=== PATIENT | female | born 1960 ===

== ENCOUNTER → 2019-07-12 07:09 | Outpatient (CLI) | payer OTHER ==
[~2019-07-12 07:09] MED LIST: COZAAR100 MG; COZAAR100 MG PO; GLUCOPHAGE XR500 MG; GLUCOPHAGE XR500 MG PO; GLUCOTROL10 MG; GLUCOTROL10 MG PO; LANTUS100 U/ML; LANTUS100 U/ML SUBCUTANEO; LASIX20 MG; LASIX20 MG PO; METFORMIN HCL1000 MG PO; SYNTHROID175 MCG; SYNTHROID175 MCG PO; ZOCOR20 MG; ZOCOR20 MG PO
== END | disposition home or self-care (01) ==
LOC: LAB 06:21
DX: E11.65 Type 2 diabetes mellitus with hyperglycemia (principal); E78.00 Pure hypercholesterolemia, unspecified; E03.8 Other specified hypothyroidism

== ENCOUNTER → 2020-01-08 | Outpatient (CLI) | payer OTHER | END | disposition home or self-care (01) | LOC: LAB 08:32 | DX: E11.65 Type 2 diabetes mellitus with hyperglycemia (principal); E78.00 Pure hypercholesterolemia, unspecified ==

== ENCOUNTER → 2020-04-29 | Outpatient (CLI) | payer OTHER | END | disposition home or self-care (01) | LOC: LAB 06:25 | PROVIDERS: ATTEND General Practice | DX: I10 Essential (primary) hypertension (principal); Z12.11 Encounter for screening for malignant neoplasm of colon; E11.65 Type 2 diabetes mellitus with hyperglycemia; E03.8 Other specified hypothyroidism; Z00.00 Encounter for general adult medical examination without abnormal findings ==

== ENCOUNTER 2020-06-16 14:14 | Outpatient (CLI) | payer OTHER | END 2020-06-16 14:17 | disposition home or self-care (01) | LOC: NUCLEAR 14:14 | PROVIDERS: ATTEND Internal Medicine Cardiovascular Disease | DX: M81.0 Age-related osteoporosis without current pathological fracture (principal); E55.9 Vitamin D deficiency, unspecified ==

== ENCOUNTER → 2020-07-24 | Outpatient (CLI) | payer OTHER | END | disposition home or self-care (01) | LOC: PPH VACUNA 09:00 | DX: Z23 Encounter for immunization (principal) ==

== ENCOUNTER 2021-06-19 06:07 | Outpatient (CLI) | payer OTHER | END 2021-06-19 15:00 | disposition home or self-care (01) | LOC: LAB 06:07 | PROVIDERS: ATTEND Internal Medicine Cardiovascular Disease | DX: I10 Essential (primary) hypertension (principal); E11.9 Type 2 diabetes mellitus without complications; E03.8 Other specified hypothyroidism; E78.2 Mixed hyperlipidemia ==

== ENCOUNTER 2021-11-11 09:20 | Outpatient (CLI) | payer OTHER | END 2021-11-11 14:39 | disposition home or self-care (01) | LOC: LAB 09:20 | DX: U07.1 COVID-19 (principal) ==

== ENCOUNTER → 2021-11-18 06:20 | Outpatient (CLI) | payer OTHER | END | disposition home or self-care (01) | LOC: LAB 06:20 | PROVIDERS: ATTEND Internal Medicine Cardiovascular Disease | DX: I10 Essential (primary) hypertension (principal); E11.9 Type 2 diabetes mellitus without complications; E03.8 Other specified hypothyroidism; E78.2 Mixed hyperlipidemia ==

== ENCOUNTER 2021-11-30 12:04 | Outpatient (CLI) | payer OTHER | END 2021-11-30 12:16 | disposition home or self-care (01) | LOC: MAMO-SONO 12:04 | PROVIDERS: ATTEND Internal Medicine Cardiovascular Disease | DX: N64.59 Other signs and symptoms in breast (principal); Z12.31 Encounter for screening mammogram for malignant neoplasm of breast ==

== ENCOUNTER → 2022-03-16 06:15 | Outpatient (CLI) | payer OTHER | END | disposition home or self-care (01) | LOC: LAB 06:15 | PROVIDERS: ATTEND Internal Medicine Cardiovascular Disease | DX: E03.9 Hypothyroidism, unspecified (principal); I10 Essential (primary) hypertension; E11.9 Type 2 diabetes mellitus without complications; E78.2 Mixed hyperlipidemia ==

== ENCOUNTER 2022-03-19 15:00 | Outpatient (CLI) | payer OTHER | END 2022-03-19 15:30 | disposition home or self-care (01) | LOC: PPH VACUNA 15:00 | PROVIDERS: ATTEND Emergency Medicine Pediatric Emergency Medicine | DX: Z23 Encounter for immunization (principal) ==

== ENCOUNTER 2022-06-08 11:33 | Emergency (ER) | payer OTHER ==
[~2022-06-08] VITALS: Ht 160 cm; Wt 108.9 kg
== END 2022-06-08 14:39 | disposition home or self-care (01) ==
LOC: ER 11:33
DX: R51.9 Headache, unspecified (principal); E11.65 Type 2 diabetes mellitus with hyperglycemia; Z79.4 Long term (current) use of insulin; E03.9 Hypothyroidism, unspecified

== ENCOUNTER 2022-06-29 00:38 | Emergency (ER) | payer OTHER | END 2022-06-29 03:15 | disposition home or self-care (01) | LOC: ER 00:38 | DX: E16.2 Hypoglycemia, unspecified (principal) ==

== ENCOUNTER → 2022-07-23 06:15 | Outpatient (CLI) | payer OTHER | END | disposition home or self-care (01) | LOC: LAB 06:15 | PROVIDERS: ATTEND Internal Medicine Cardiovascular Disease | DX: I10 Essential (primary) hypertension (principal); E11.9 Type 2 diabetes mellitus without complications; E03.9 Hypothyroidism, unspecified; E78.2 Mixed hyperlipidemia ==

== ENCOUNTER 2023-01-04 08:12 | Outpatient (CLI) | payer OTHER | END 2023-01-04 23:00 | disposition home or self-care (01) | LOC: LAB 08:12 | PROVIDERS: ATTEND Internal Medicine Cardiovascular Disease | DX: E03.9 Hypothyroidism, unspecified (principal); I10 Essential (primary) hypertension; E11.9 Type 2 diabetes mellitus without complications; E78.2 Mixed hyperlipidemia; Z12.11 Encounter for screening for malignant neoplasm of colon; E55.9 Vitamin D deficiency, unspecified ==

== ENCOUNTER 2023-01-18 05:40 | Day surgery (SDC) | payer OTHER ==
[~2023-01-18] VITALS: Ht 160 cm; Wt 102.1 kg
[~2023-01-18 05:40] MED LIST changes: +ATORVASTATIN CA10 MG PO; +LOSARTAN POTASS50 MG PO
[2023-01-18] MEDS ORDERED: ASA325 M1 PO (08:06)
[2023-01-18] MEDS ORDERED: DUI500 PO (08:06)
[2023-01-18] MEDS ORDERED: TRAM1TAB98 PO (08:06)
== END 2023-01-18 12:40 | disposition home or self-care (01) ==
LOC: CIR.AMB 05:40
PROVIDERS: ATTEND Orthopaedic Surgery
DX: S83.232A Complex tear of medial meniscus, current injury, left knee, initial encounter (principal); M67.362 Transient synovitis, left knee; M94.262 Chondromalacia, left knee; M23.42 Loose body in knee, left knee; E66.09 Other obesity due to excess calories